=== PATIENT | male | born 1970 | race Caucasian/White ===

== ENCOUNTER 2018-05-20 12:08 | Emergency (ER) | payer OTHER ==
[2018-05-20] MEDS ORDERED: Sodium Chloride 0.9% 1000 ML 1,000 ML IV STA (12:52)
[2018-05-20] MEDS ORDERED: Ativan 2 MG/1 ML VIAL IV ONE (12:52)
--- NOTE | 2018-05-20 13:01 | ERPHSYRPT ---
- History of Present Illness Time Seen by Provider: 05/20/18 12:30 Patient Subjective Stated Complaint: pt had a seizure today while shopping at the local grocery store with his mother. mother states pt has grand mal and absent seizures. pt reports several seizures the last 3 days, reports history of seizures. states before this week his last seizure was in november. pt reports feeling dizzy proceeding his seizure but states he is feeling much better. pt denies incontinence. pt states he is scheduled to see his neurologist Dr Guillen in Jun. Triage Nursing Assessment: pt is aox3, pupils perrl, pt is able to answer all questions appropriately, afebrile, resps easy and non labored, radial pulses strong and equal, pt skin pink warm dry. pt exhibiting some gait instability when transferring from to [facility] with assistance of this nurse. 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 sensation is intact. Physician History: 47 y/o white male with known seizure disorder presents with increasing episodes of seizure activity over last 3 days. He had a witnessed seizure in [facility] this am. pt admits he doesnt take his medications as prescribed. i take it sometimes and sometimes i dont take it. 2 days ago he SOR after call to EMS for same issue. pt sees his neurologist in June 2018. pt denies headache, cp, soa and abd pain. Timing/Duration: day(s) (last 3 days increasing number of seizures.) Severity: mild Character of Deficits: none Deficits: no difficulties Baseline/Normal Cognition: alert oriented x 3 Current Cognition: alert oriented x 3 Baseline Gait: walks w/o assistance Associated Symptoms: confusion (mild post ictal), seizures, No loss of consciousness, No nausea, No vomiting, No weakness, No muscle spasms, No numbness/tingling in legs/feet, No paresthesia, No ringing in ears, No slurred speech, No trouble walking, No vision changes, No chest pain, No headache Allergies/Adverse Reactions: penicillin Allergy (Verified 12/25/14 11:10) FAMILY HX SO MD [facility] GIVE Home Medications: Diphenhydramine HCl [Benadryl] 50 mg PO TID 06/11/15 [History] Fluoxetine HCl [Prozac] 20 mg PO DAILY 06/11/15 [History] Oxcarbazepine [Trileptal] 600 mg PO BID 06/11/15 [History] predniSONE [Prednisone] 40 mg PO DAILY 06/11/15 [History] Hx Tetanus, Diphtheria Vaccination/Date Given: No Hx Influenza Vaccination/Date Given: No Hx Pneumococcal Vaccination/Date Given: No Immunizations Up to Date: Yes - Review of Systems Constitutional: No Symptoms Eyes: No Symptoms Ears, Nose, & Throat: No Symptoms Respiratory: No Symptoms Cardiac: No Symptoms Abdominal/Gastrointestinal: No Symptoms Genitourinary Symptoms: No Symptoms Musculoskeletal: No Symptoms Skin: No Symptoms Neurological: Dizziness, Seizure, No Headache Psychological: No Symptoms, No Anxiety, No Depression, No Emotional Lability, No Hallucinations Endocrine: No Symptoms Hematologic/Lymphatic: No Symptoms Immunological/Allergic: No Symptoms All Other Systems: Reviewed and Negative - Past Medical History Pertinent Past Medical History: Yes Neurological History: Seizures ENT History: Cataracts Cardiac History: No Pertinent History, Hypertension Respiratory History: No Pertinent History Endocrine Medical History: No Pertinent History Musculoskeletal History: No Pertinent History GI Medical History: GERD History: No Pertinent History Psycho-Social History: Bipolar, Depression Other Medical History: Luekemia - Past Surgical History Past Surgical History: Yes Neuro Surgical History: No Pertinent History Cardiac: No Pertinent History Respiratory: No Pertinent History Gastrointestinal: No Pertinent History Genitourinary: No Pertinent History Musculoskeletal: No Pertinent History Male Surgical History: No Pertinent History Other Surgical History: CATERACT SURGERY 2011, A CHILD 5 SURGERIES ON MUSCLE IN EYES. - Social History Smoking Status: Former smoker Exposure to second hand smoke: No Drug Use: none Patient Lives Alone: No - Nursing Vital Signs Nursing Vital Signs: Initial Vital Signs Temperature 99.4 F 05/20/18 12:10 Pulse Rate 70 05/20/18 12:10 Respiratory Rate 20 05/20/18 12:10 Blood Pressure 127/87 05/20/18 12:10 O2 Sat by Pulse Oximetry 95 05/20/18 12:10 Pain Scale Pain Intensity 0 - Yessy Coma Scale Best Eye Response (Yessy): (4) open spontaneously Best Verbal Response (Garland): (5) oriented Best Motor Response (Yessy): (6) obeys commands Garland Total: 15 - Physical Exam General Appearance: no apparent distress, alert Eye Exam: bilateral eye: normal inspection, PERRL, EOMI Ears, Nose, Throat Exam: normal ENT inspection, moist mucous membranes Neck Exam: normal inspection, non-tender, supple, full range of motion Respiratory: normal breath sounds, lungs clear, airway intact, No chest tenderness, No respiratory distress, No accessory muscle use, No rhonchi, No wheezing, No stridor Cardiovascular: regular rate/rhythm, normal heart sounds, normal peripheral pulses Gastrointestinal: soft, normal bowel sounds, No tenderness, No guarding, No rebound Rectal Exam: not done Back Exam: normal inspection, normal range of motion, No CVA tenderness, No vertebral tenderness Extremity Exam: normal inspection, normal range of motion, pelvis stable Mental Status: alert, oriented x 3, cooperative biomedical engineering technologist Exam: normal hearing, normal speech, PERRL Coordination/Gait: normal finger to nose, normal gait, normal cerebellar function Motor/Sensory: no motor deficit, no sensory deficit Skin Exam: normal color, warm SpO2 Interpretation: normal SpO2: 95 Oxygen Delivery: Room Air - Course Nursing assessment & vital signs reviewed: Yes EKG Interpreted by Me: RATE (70), Sinus Rhythm, NORMAL AXIS, NORMAL INTERVALS, Non-specific ST Changes Ordered Tests: Active Orders 24 hr Category Date Time Status Shopping Centre Manager STAT Care 05/20/18 12:53 Active EKG-ER Only STAT Care 05/20/18 12:30 Active IV Insertion STAT Care 05/20/18 12:30 Active cath [Cath for Specimen-Straight] STAT Care 05/20/18 13:34 Active HEAD WITHOUT CONTRAST [CT] Stat Exams 05/20/18 12:53 Taken CBC W DIFF Stat Lab 05/20/18 13:00 Completed CMP Stat Lab 05/20/18 13:00 Completed TROPONIN Q3H Lab 05/20/18 13:00 Completed TROPONIN Q3H Lab 05/20/18 16:15 Ordered TROPONIN Q3H Lab 05/20/18 19:15 Ordered TROPONIN Q3H Lab 05/20/18 22:15 Ordered UA W/RFX UR CULTURE Stat Lab 05/20/18 13:35 Completed Urine Triage Profile Stat Lab 05/20/18 13:35 Completed Medication Summary Discontinued Medications Generic Name Dose Route Start Last Admin Trade Name Freq PRN Reason Stop Dose Admin Sodium Chloride 1,000 mls @ 999 mls/hr 05/20/18 12:52 05/20/18 14:19 Sodium Chloride 0.9% 1000 Ml IV 05/20/18 13:52 Infused .Q1H1M STA Infusion Sodium Chloride Confirm 05/20/18 13:15 Sodium Chloride 0.9% 1000 Ml Administered 05/20/18 13:16 Dose 1,000 mls @ ud .ROUTE .STK-MED ONE Lidocaine HCl 200 mg 05/20/18 13:17 05/20/18 13:21 Xylocaine 2% Uro-Jet TOP 05/20/18 13:18 200 mg STAT ONE Administration Lidocaine HCl Confirm 05/20/18 13:19 Xylocaine 2% Uro-Jet Administered 05/20/18 13:20 Dose 200 mg .ROUTE .STK-MED ONE Lorazepam 1 mg 05/20/18 12:52 05/20/18 13:17 Ativan 2 Mg/1 Ml Vial IV 05/20/18 12:53 1 mg STAT ONE Administration Lorazepam Confirm 05/20/18 13:15 Ativan 2 Mg/1 Ml Vial Administered 05/20/18 13:16 Dose 2 mg .ROUTE .STK-MED ONE Lab/Rad Data: Laboratory Result Diagrams 05/20/18 13:00 05/20/18 13:00 Laboratory Results 05/20/18 05/20/18 05/20/18 Range/Units 13:35 13:35 13:00 WBC (4.0-10.5) K/mm3 RBC (4.1-5.6) M/mm3 Hgb (12.5-18.0) gm/dl Hct (42-50) % MCV (78-100) fl MCH (26-32) pg MCHC (32-36) g/dl RDW (11.5-14.0) % Plt Count (150-450) K/mm3 MPV (6-9.5) fl Gran % (36.0-66.0) % Eos # (Auto) (0-0.5) Absolute Lymphs (auto) (1.0-4.6) Absolute Monos (auto) (0.0-1.3) Lymphocytes % (24.0-44.0) % Monocytes % (0.0-12.0) % Eosinophils % (0.00-5.0) % Basophils % (0.0-0.4) % Absolute Granulocytes (1.4-6.9) Basophils # (0-0.4) Sodium (137-145) mmol/L Potassium (3.5-5.1) mmol/L Chloride (98-107) mmol/L Carbon Dioxide (22-30) mmol/L Anion Gap (5-15) MEQ/L BUN (9-20) mg/dL Creatinine (0.66-1.25) mg/dL Estimated GFR ML/MIN Glucose (74-106) mg/dL Calcium (8.4-10.2) mg/dL Total Bilirubin (0.2-1.3) mg/dL AST (17-59) U/L ALT (0-50) U/L Alkaline Phosphatase (38-126) U/L Troponin I < 0.012 (0.000-0.034) ng/mL Serum Total Protein (6.3-8.2) g/dL Albumin (3.5-5.0) g/dL Urine Color YELLOW (YELLOW) Urine Appearance CLEAR (CLEAR) Urine pH 5.0 (5-6) Ur Specific Marianna 1.030 (1.005-1.025) Urine Protein NEGATIVE (Negative) Urine Ketones NEGATIVE (NEGATIVE) Urine Blood NEGATIVE (0-5) Bashir/ul Urine Nitrite NEGATIVE (NEGATIVE) Urine Bilirubin NEGATIVE (NEGATIVE) Urine Urobilinogen NEGATIVE (0-1) mg/dL Ur Leukocyte Esterase NEGATIVE (NEGATIVE) Urine WBC (Auto) 0-2 (0-5) /HPF Urine RBC (Auto) NONE (0-2) /HPF U Epithel Cells (Auto) NONE (FEW) /HPF Urine Bacteria (Auto) NONE SEEN (NEGATIVE) /HPF Unidentified Crystals 2-5 (NEGATIVE) /HPF Urine Mucus (Auto) MODERATE (NEGATIVE) /HPF Urine Culture Reflexed NO (NO) Urine Glucose NEGATIVE (NEGATIVE) mg/dL Urine Opiates Level NEGATIVE (NEGATIVE) Ur Methadone NEGATIVE (NEGATIVE) Urine Barbiturates NEGATIVE (NEGATIVE) Ur Phencyclidine (PCP) NEGATIVE (NEGATIVE) Urine Amphetamine NEGATIVE (NEGATIVE) U Benzodiazepine Level NEGATIVE (NEGATIVE) Urine Cocaine NEGATIVE (NEGATIVE) Urine Marijuana (THC) NEGATIVE (NEGATIVE) 05/20/18 05/20/18 Range/Units 13:00 13:00 WBC 6.4 (4.0-10.5) K/mm3 RBC 4.59 (4.1-5.6) M/mm3 Hgb 14.8 (12.5-18.0) gm/dl Hct 44.4 (42-50) % MCV 96.7 (78-100) fl MCH 32.2 H (26-32) pg MCHC 33.3 (32-36) g/dl RDW 13.2 (11.5-14.0) % Plt Count 157 (150-450) K/mm3 MPV 9.0 (6-9.5) fl Gran % 52.5 (36.0-66.0) % Eos # (Auto) 0.05 (0-0.5) Absolute Lymphs (auto) 2.42 (1.0-4.6) Absolute Monos (auto) 0.57 (0.0-1.3) Lymphocytes % 37.6 (24.0-44.0) % Monocytes % 8.9 (0.0-12.0) % Eosinophils % 0.8 (0.00-5.0) % Basophils % 0.2 (0.0-0.4) % Absolute Granulocytes 3.39 (1.4-6.9) Basophils # 0.01 (0-0.4) Sodium 140 (137-145) mmol/L Potassium 3.8 (3.5-5.1) mmol/L Chloride 108 H (98-107) mmol/L Carbon Dioxide 26 (22-30) mmol/L Anion Gap 10.6 (5-15) MEQ/L BUN 15 (9-20) mg/dL Creatinine 0.87 (0.66-1.25) mg/dL Estimated GFR > 60.0 ML/MIN Glucose 100 (74-106) mg/dL Calcium 9.1 (8.4-10.2) mg/dL Total Bilirubin 0.50 (0.2-1.3) mg/dL AST 20 (17-59) U/L ALT 25 (0-50) U/L Alkaline Phosphatase 51 (38-126) U/L Troponin I (0.000-0.034) ng/mL Serum Total Protein 7.3 (6.3-8.2) g/dL Albumin 4.2 (3.5-5.0) g/dL Urine Color (YELLOW) Urine Appearance (CLEAR) Urine pH (5-6) Ur Specific Marianna (1.005-1.025) Urine Protein (Negative) Urine Ketones (NEGATIVE) Urine Blood (0-5) Bashir/ul Urine Nitrite (NEGATIVE) Urine Bilirubin (NEGATIVE) Urine Urobilinogen (0-1) mg/dL Ur Leukocyte Esterase (NEGATIVE) Urine WBC (Auto) (0-5) /HPF Urine RBC (Auto) (0-2) /HPF U Epithel Cells (Auto) (FEW) /HPF Urine Bacteria (Auto) (NEGATIVE) /HPF Unidentified Crystals (NEGATIVE) /HPF Urine Mucus (Auto) (NEGATIVE) /HPF Urine Culture Reflexed (NO) Urine Glucose (NEGATIVE) mg/dL Urine Opiates Level (NEGATIVE) Ur Methadone (NEGATIVE) Urine Barbiturates (NEGATIVE) Ur Phencyclidine (PCP) (NEGATIVE) Urine Amphetamine (NEGATIVE) U Benzodiazepine Level (NEGATIVE) Urine Cocaine (NEGATIVE) Urine Marijuana (THC) (NEGATIVE) - Progress Progress: improved, re-examined Progress Note: 05/20/18 15:16 pt doing well. wants to go home. ct scan head-no acute intracranial processl Counseled pt/family regarding: lab results, diagnosis, need for follow-up, rad results - Departure Time of Disposition: 15:16 Departure Disposition: Home Clinical Impression: Seizure, Noncompliance Condition: Stable Critical Care Time: No Referrals: GLORIA JOHNSON [Primary Care Provider] - Additional Instructions: take your medications as prescribed. follow up with your neurologist for further management
[2018-05-20] MEDS ORDERED: Sodium Chloride 0.9% 1000 ML 1,000 ML ONE (13:15)
[2018-05-20] MEDS ORDERED: Ativan 2 MG/1 ML VIAL ONE (13:15)
[2018-05-20] MEDS ORDERED: XYLOCAINE 2% Uro-Jet TOP ONE (13:17)
[2018-05-20] MEDS ORDERED: XYLOCAINE 2% Uro-Jet ONE (13:19)
[2018-05-20 13:28] LABS: BASOPHIL % 0.2 % (0.0-0.4); Basophil (Absolute #) 0.01 (0-0.4); Eosinophil % 0.8 % (0.00-5.0); Eosinophil (Absolute #) 0.05 (0-0.5); Granulocyte Absolute (ANC) 3.39 (1.4-6.9); Granulocytes % 52.5 % (36.0-66.0); Hematocrit 44.4 % (42-50); Hemoglobin 14.8 gm/dl (12.5-18.0); Lymphocyte (Absolute #) 2.42 (1.0-4.6); Lymphocytes % 37.6 % (24.0-44.0); Mean Cell Volume 96.7 fl (78-100); Mean Corpuscular Hemoglobin 32.2 pg (26-32); Mean Corpuscular Hgb Concent. 33.3 g/dl (32-36); Monocyte (Absolute #) 0.57 (0.0-1.3); Monocytes % 8.9 % (0.0-12.0); Platelet Count 157 K/mm3 (150-450); Red Blood Count 4.59 M/mm3 (4.1-5.6); Red Cell Distribution Width 13.2 % (11.5-14.0); White Blood Count 6.4 K/mm3 (4.0-10.5)
[2018-05-20 13:35] LABS: ALBUMIN 4.2 g/dL (3.5-5.0); ALKALINE PHOSPHATASE 51 U/L (38-126); ANION GAP 10.6 MEQ/L (5-15); BLOOD UREA NITROGEN 15 mg/dL (9-20); CHLORIDE 108 mmol/L (98-107); Calcium 9.1 mg/dL (8.4-10.2); Carbon Dioxide 26 mmol/L (22-30); Creatinine 1 0.87 mg/dL (0.66-1.25); Glucose 100 mg/dL (74-106); Potassium 3.8 mmol/L (3.5-5.1); SGOT/AST 20 U/L (17-59); SGPT/ALT 25 U/L (0-50); SODIUM 140 mmol/L (137-145); Total Protein 7.3 g/dL (6.3-8.2)
[2018-05-20 13:48] LABS: Appearance CLEAR (CLEAR); Bilirubin NEGATIVE (NEGATIVE); Blood NEGATIVE Ery/ul (0-5); Glucose NEGATIVE (NEGATIVE); Ketones NEGATIVE (NEGATIVE); Leukocyte Esterase NEGATIVE (NEGATIVE); Nitrite NEGATIVE (NEGATIVE); Protein,Urine Dip NEGATIVE (Negative); Urobilinogen NEGATIVE mg/dL (0-1)
[2018-05-20 14:24] LABS: Amphetamine,Urine NEGATIVE (NEGATIVE); Barbiturate,Urine NEGATIVE (NEGATIVE); Benzodiazepine,Urine NEGATIVE (NEGATIVE); Cocaine,Urine NEGATIVE (NEGATIVE); Methadone,Urine NEGATIVE (NEGATIVE); Opiate,Urine NEGATIVE (NEGATIVE); PCP,Urine NEGATIVE (NEGATIVE); THC,Urine NEGATIVE (NEGATIVE)
[2018-05-20 15:21] VITALS: BP 109/75; PULSE 67; O2SAT 97
--- NOTE | 2018-05-20 17:21 | XRAY ---
Indication: Seizures. History of seizures. Multiple contiguous axial images obtained through the head without contrast. Comparison: None. Punctate benign-appearing subcortical calcification in the high right parietal convexity. Otherwise no acute intracranial hemorrhage, abnormal extra-axial fluid collection, or mass effect. Fourth ventricle is midline without hydrocephalus. Carr-white matter differentiation preserved. Bony calvarium intact. Visualized paranasal sinuses and mastoid air cells are clear. Impression: Benign-appearing right parietal punctate calcification. No acute intracranial abnormalities. Comment: Preliminary interpretation was made by [facility]. No discrepancy. CTDI 69.79
== END 2018-05-20 15:30 | disposition home or self-care (01) ==
LOC: ED 12:08
DX: R56.9 Unspecified convulsions (principal); R41.0 Disorientation, unspecified; Z91.14 Patient's other noncompliance with medication regimen; Z79.899 Other long term (current) drug therapy
CPT/HCPCS: 36000; 36415; 70450; 80053; 80307; 81001; 84484; 85025; 93005; 93041; 96365; 96374; 99284; P9612; J2060

== ENCOUNTER 2024-02-18 13:02 | Emergency (ER) | payer OTHER ==
[2024-02-18 13:24] VITALS: PULSE 118; RESP 20; TEMP 99.8; O2SAT 98
[2024-02-18] MEDS ORDERED: Sodium Chloride 0.9% 1000 ML 1,000 ML ONE (13:34)
[2024-02-18] MEDS: Sodium Chloride 0.9% 1000 ML 1,000 ML IV STA (13:36)
[2024-02-18 13:38] LABS: Absolute Neutrophil Ct (ANC) 2.57 x10^3/uL (1.78-5.38); BASOPHIL % 0.4 % (0.2-1.2); Basophil (Absolute #) 0.02 x10^3/uL (0.01-0.08); Eosinophil % 1.6 % (0.8-7.0); Eosinophil (Absolute #) 0.08 x10^3/uL (0.04-0.54); Hematocrit 49.9 % (40.1-51.0); IMMATURE GRAN # 0.03 x10^3u/L (0.001-0.031); IMMATURE GRAN % 0.6 % (0.001-0.429); Lymphocyte (Absolute #) 2.07 x10^3/uL (1.32-3.57); Lymphocytes % 40.1 % (21.8-53.1); Mean Corpuscular Hemoglobin 32.4 pg (25.7-32.2); Mean Corpuscular Hgb Concent. 34.1 g/dL (32.3-36.5); Mean Platelet Volume 8.9 fL (9.4-12.4); Monocyte (Absolute #) 0.39 x10^3/uL (0.30-0.82); Monocytes % 7.6 % (5.3-12.2); Neutrophil % 49.7 % (34.0-67.9); Platelet Count 161 x10^3/uL (163-337); Red Blood Count 5.25 x10^6/uL (4.63-6.08); Red Cell Distribution Width 13.2 % (11.6-14.4); White Blood Count 5.2 x10^3/uL (4.23-9.07)
[2024-02-18 13:46] LABS: Group A Strep NOT DETECTED (NEGATIVE)
--- NOTE | 2024-02-18 13:50 | ERPHSYRPT ---
- History of Present Illness Time Seen by Provider: 02/18/24 13:47 Source: patient Exam Limitations: no limitations Patient Subjective Stated Complaint: Nasal congestion/cough Triage Nursing Assessment: Patient ambulated back to ED and transferred self to bed. Patient A+O x3. Patient's skin flushed, warm and dry. Patient complains of nasal congestion, cough, diarrhea, occasional SOB, Headache and bodyaches for one week. Patient complains of headache 5/10. Physician History: Patient complains of nasal congestion, cough, diarrhea, occasional SOB, Headache and body aches for one to two weeks. Patient complains of headache 5/10. Timing/Duration: week(s) (1-2 weeks) Cough Quality/Degree: dry cough Possible Cause: no prior episodes Associated Symptoms: fever, chills, chest pain/soreness, cough, dizziness, headache, lightheadedness, muscle aches, sinus infection, No earache, No facial pain, No nasal congestion, No nasal drainage, No shortness of breath Allergies/Adverse Reactions: penicillin Allergy (Verified 02/18/24 13:12) FAMILY HX SO MD E[facility] GIVE Home Medications: Fluoxetine HCl [Prozac] 20 mg PO DAILY 06/11/15 [History] OXcarbazepine [Trileptal] 600 mg PO BID 06/11/15 [History] diphenhydrAMINE HCL [Benadryl] 50 mg PO TID 06/11/15 [History] predniSONE [Prednisone] 40 mg PO DAILY 06/11/15 [History] Hx Tetanus, Diphtheria Vaccination/Date Given: No Hx Influenza Vaccination/Date Given: Yes Hx Pneumococcal Vaccination/Date Given: No Immunizations Up to Date: Yes Travel Risk - International Travel Have you traveled outside of the country in past 3 weeks: No - Emerging Infectious Disease Are you exhibiting symptoms associated with any current EIDs: Yes Symptoms: Cough: New Onset, Diarrhea, Fever, Headaches/Body Aches/, Loss of taste or smell, Shortness of Breath - Review of Systems Constitutional: Fever, No Chills Eyes: No Symptoms Ears, Nose, & Throat: Nose Congestion, Throat Pain Respiratory: Cough, No Dyspnea, No Wheezing Cardiac: No Chest Pain, No Edema, No Syncope Abdominal/Gastrointestinal: No Abdominal Pain, No Nausea, No Vomiting, No Diarrhea Genitourinary Symptoms: No Dysuria Musculoskeletal: No Back Pain, No Neck Pain Skin: No Rash Neurological: No Dizziness, No Focal Weakness, No Sensory Changes Psychological: No Symptoms Endocrine: No Symptoms All Other Systems: Reviewed and Negative - Past Medical History Pertinent Past Medical History: Yes Neurological History: Seizures ENT History: Cataracts Cardiac History: No Pertinent History, Hypertension Respiratory History: No Pertinent History Endocrine Medical History: No Pertinent History Musculoskeletal History: No Pertinent History GI Medical History: GERD History: No Pertinent History Psycho-Social History: Bipolar, Depression Other Medical History: Luekemia in remission since 2018 - Past Surgical History Past Surgical History: Yes Neuro Surgical History: No Pertinent History Cardiac: No Pertinent History Respiratory: No Pertinent History Gastrointestinal: No Pertinent History Genitourinary: No Pertinent History Musculoskeletal: No Pertinent History Male Surgical History: No Pertinent History Other Surgical History: CATERACT SURGERY 2011, A CHILD 5 SURGERIES ON MUSCLE IN EYES. - Social History Smoking Status: Current every day smoker How long have you smoked: years Exposure to second hand smoke: No Drug Use: none Patient Lives Alone: No - Social Determinants of Health Will the patient participate in the screening: Yes Do you worry about a steady place to live?: No Do you have any problems with any of the following?: No known problems In the past 12 months,have you had to go without utilities?: No Transportation Issues: No Has anyone in your support network made you feel unsafe?: No Have you or anyone in your house had to go without enough: No - Nursing Vital Signs Nursing Vital Signs: Initial Vital Signs Temperature 99.8 F 02/18/24 13:18 Pulse Rate 118 H 02/18/24 13:18 Respiratory Rate 20 02/18/24 13:18 Blood Pressure 125/86 02/18/24 13:18 O2 Sat by Pulse Oximetry 98 02/18/24 13:18 Pain Scale Pain Intensity 5 - Physical Exam General Appearance: no apparent distress, alert Eye Exam: PERRL/EOMI, eyes nml inspection Ears, Nose, Throat Exam: normal ENT inspection, TMs normal, pharynx normal, moist mucous membranes Neck Exam: normal inspection, non-tender, supple, full range of motion Respiratory Exam: diminished breath sounds, wheezing, No respiratory distress Cardiovascular Exam: regular rate/rhythm, normal heart sounds Gastrointestinal/Abdomen Exam: soft, No tenderness Back Exam: normal inspection, No CVA tenderness, No vertebral tenderness Extremity Exam: normal inspection, normal range of motion Neurologic Exam: alert, oriented x 3, cooperative, normal mood/affect, sensation nml, No motor deficits Skin Exam: normal color, warm, dry, No rash Lymphatic Exam: No adenopathy SpO2: 98 - Course Nursing assessment & vital signs reviewed: Yes - Radiology Exams Chest X-ray Interpretation: Interpreted by me, Reviewed by me, Negative Ordered Tests: Active Orders 24 hr Category Date Time Status CHEST 1 VIEW (PORTABLE) Stat Exams 02/18/24 13:25 Taken CBC W DIFF Stat Lab 02/18/24 13:34 Completed CMP Stat Lab 02/18/24 13:34 Completed Medication Summary Generic Name Dose Route Start Last Admin Trade Name Freq PRN Reason Stop Dose Admin Sodium Chloride 1,000 mls @ 999 mls/hr 02/18/24 13:25 02/18/24 13:36 Sodium Chloride 0.9% 1000 Ml IV 02/18/24 14:25 999 mls/hr .Q1H1M STA Administration Discontinued Medications Generic Name Dose Route Start Last Admin Trade Name Freq PRN Reason Stop Dose Admin Acetaminophen 1,000 mg 02/18/24 13:50 02/18/24 13:57 Acetaminophen 500 Mg Tablet PO 02/18/24 13:51 1,000 mg STAT STA Administration Acetaminophen Confirm 02/18/24 13:55 Acetaminophen 500 Mg Tablet Administered 02/18/24 13:56 Dose 1,000 mg .ROUTE .STK-MED ONE Sodium Chloride Confirm 02/18/24 13:34 Sodium Chloride 0.9% 1000 Ml Administered 02/18/24 13:35 Dose 1,000 mls @ ud .ROUTE .STK-MED ONE Lab/Rad Data: Laboratory Result Diagrams 02/18/24 13:34 02/18/24 13:34 Laboratory Results 02/18/24 02/18/24 02/18/24 Range/Units 13:34 13:34 13:19 WBC 5.2 (4.23-9.07) x10^3/uL RBC 5.25 (4.63-6.08) x10^6/uL Hgb 17.0 (13.7-17.5) g/dL Hct 49.9 (40.1-51.0) % MCV 95.0 H (79.0-92.2) fL MCH 32.4 H (25.7-32.2) pg MCHC 34.1 (32.3-36.5) g/dL RDW 13.2 (11.6-14.4) % Plt Count 161 L (163-337) x10^3/uL MPV 8.9 L (9.4-12.4) fL Gran % 49.7 (34.0-67.9) % Immature Gran % (Auto) 0.6 H (0.001-0.429) % Nucleat RBC Rel Count 0.0 (0.00-0.2) % Eos # (Auto) 0.08 (0.04-0.54) x10^3/uL Immature Gran # (Auto) 0.03 (0.001-0.031) x10^3u/L Absolute Lymphs (auto) 2.07 (1.32-3.57) x10^3/uL Absolute Monos (auto) 0.39 (0.30-0.82) x10^3/uL Absolute Nucleated RBC 0.00 (0.00-0.012) x10^3u/L Lymphocytes % 40.1 (21.8-53.1) % Monocytes % 7.6 (5.3-12.2) % Eosinophils % 1.6 (0.8-7.0) % Basophils % 0.4 (0.2-1.2) % Absolute Granulocytes 2.57 (1.78-5.38) x10^3/uL Basophils # 0.02 (0.01-0.08) x10^3/uL Sodium 140 (135-145) mmol/L Potassium 4.5 (3.5-5.1) mmol/L Chloride 113 H (98-107) mmol/L Carbon Dioxide 17 L (22-30) mmol/L Anion Gap 15.5 H (5-15) MEQ/L BUN 12 (9-20) mg/dL Creatinine 0.93 (0.66-1.25) mg/dL Estimated GFR 98.8 ML/MIN Glucose 95 (74-106) mg/dL Calcium 9.4 (8.4-10.2) mg/dL Total Bilirubin 0.60 (0.2-1.3) mg/dL AST 43 (17-59) U/L ALT 57 H (0-50) U/L Alkaline Phosphatase 40 (38-126) U/L Serum Total Protein 7.5 (6.3-8.2) g/dL Albumin 4.5 (3.5-5.0) g/dL Influenza Type A Ag NEGATIVE (NEGATIVE) Influenza Type B Ag NEGATIVE (NEGATIVE) RSV (PCR) NEGATIVE (NEGATIVE) SARS-CoV-2 (PCR) POSITIVE A (NEGATIVE) Group A Strep Antibody NOT DETECTED (NEGATIVE) - Progress Progress: improved Air Movement: good Blood Culture(s) Obtained: Yes Antibiotics given: No Counseled pt/family regarding: lab results, diagnosis, need for follow-up, rad results, smoking cessation Medical Desision Making - Diagnostic Testing Diagnostic test were ordered, analyzed, and reviewed by me: Yes Radiological Interpretation: Interpreted by me, Reviewed by me - Risk of complications Minimal Risk: Minimal risk of morbidity - Departure Departure Disposition: Home Clinical Impression: COVID-19 virus infection Condition: Stable Critical Care Time: No Referrals: JOSE F SERRANO MD [Primary Care Provider] - Follow up/PCP as directed Instructions: COVID-19 ED Additional Instructions: Discharge/Care Plan NA ALBARADO was seen on 02/18/24 in the Emergency Room. The anthony wendy was counseled regarding Diagnosis,Lab results, Imaging studies, need for follow up and when to return to the Emergency Room. Prescriptions given: Discharge Note I have spoken with the patient and/or caregivers. I have explained the patient's condition, diagnosis and treatment plan based on the information available to me at this time. I have answered the patient's and/or caregiver's questions and ad dressed any concerns. The patient and/or caregivers have as good understanding of the patient's diagnosis, condition and treatment plan as can be expected at this point. The vital signs have been stable. The patient's condition is stable and appropriate for discharge from the emergency department. The patient will pursue further outpatient evaluation with the primary care physician or other designated or consulting physician as outlined in the discharge instructions. The patient and/or caregivers are agreeable to this plan of care and follow-up instructions have been explained in detail. The patient and/or caregivers have received these instruction. The patient/and or caregivers are aware that any significant change in condition or worsening of symptoms should prompt an immediate return to this or the closest emergency department or call 911. NA ALBARADO was seen on 02/18/24 n the Emergency Room. At that time you were treated for an emergent condition, during your visit Laboratory, Radiology and/or other procedures may have been ordered. It is very important that you follow-up with your Primary Care Physician JOSE F SERRANO MD within the next 24-48 hours to review your Emergency Room visit and the final results of testing that was ordered. Some test results such as Urine Cultures, Blood Cultures, and other cultures if ordered will not be finalized for 24-48 hours. If you do not have a Primary Care Provider please call the medical records department at [phone] ext [phone] to obtain a copy of your results or you may sign into our patient portal to obtain these results by visiting us @ [email or web address] and completing the following steps: 1. Click on the Patient Portal link 2. Click the Patient Self Enrollment Link to complete the enrollment form and entering your 3. Once the enrollment form is completed you will receive an email with a temporary ID and password at the email address you provided. 4. Next choose a user name and password. Your user name must be at least 4 characters long and your password must be at least 4 characters long. 5. Choose a security question from the list and provide your answer to the question. If you already have signed into the Health Portal you may access your Health Care Information 20/12 by the following steps: 1. Login to our website @ [email or web address] 2. Enter your original user name and password. FAQS The [facility] Health Portal is an online tool that contains your Lab Results, Radiology Reports, Visit History, Discharge Instructions and Health Summary Lab and Radiology Results will not be available for 72 hours on the portal. The Portal is a secure site, passwords are encryted and URLs are re-written so they cannot be copied and pasted. You and authorized family members are the only ones who can access your Portal. Also there is a timeout feature that protects your information if you leave the Portal page open. If you have technical difficulty please use the Contact Us link on the page this will allow you to submit any questions you have regarding the Portal or you may contact the Medical Record Department at [phone]. Prescriptions: Guaifenesin/Dextromethorphan [Mucinex Dm ER 1,200-60 mg Tab] 1 each PO BID #15 tablet
[2024-02-18 13:51] LABS: ALBUMIN 4.5 g/dL (3.5-5.0); ANION GAP 15.5 MEQ/L (5-15); BILIRUBIN,TOTAL 0.6 mg/dL (0.2-1.3); Calcium 9.4 mg/dL (8.4-10.2); Creatinine 1 0.93 mg/dL (0.66-1.25); EST GLOMERULAR FILTRATION RATE 98.8 ML/MIN; Potassium 4.5 mmol/L (3.5-5.1); Total Protein 7.5 g/dL (6.3-8.2)
[2024-02-18] MEDS ORDERED: TYLENOL EXTRA STRENGTH 500 MG ONE (13:55)
[2024-02-18] MEDS: TYLENOL EXTRA STRENGTH 500 MG PO STA (13:57)
[2024-02-18 13:59] LABS: INFLUENZA A NEGATIVE (NEGATIVE); INFLUENZA B NEGATIVE (NEGATIVE); RESPIRATORY SYNCTIAL VIRUS NEGATIVE (NEGATIVE)
[2024-02-18 14:01] LABS: SARS-CoV-2 Xpert Express POSITIVE (NEGATIVE)
[2024-02-18 14:10] VITALS: BP 122/90
--- NOTE | 2024-02-18 20:45 | XRAY ---
Indication: Cough. Comparison: May 11, 2015 Portable chest demonstrates normal heart and lungs. Bony thorax intact. No new/acute findings.
== END 2024-02-18 14:16 | disposition home or self-care (01) ==
LOC: ED 13:02
DX: U07.1 COVID-19 (principal); R09.81 Nasal congestion; R05.9 Cough, unspecified; R19.7 Diarrhea, unspecified; F17.200 Nicotine dependence, unspecified, uncomplicated; Z85.6 Personal history of leukemia
CPT/HCPCS: 0241U; 36000; 36415; 71045; 80053; 85025; 87651; 99284; A9270-GY

== ENCOUNTER 2025-02-19 13:59 | Emergency (ER) | payer OTHER ==
[2025-02-19 15:09] VITALS: TEMP 96.2
--- NOTE | 2025-02-19 15:26 | ERPHSYRPT ---
- History of Present Illness Time Seen by Provider: 02/19/25 15:00 Source: patient Exam Limitations: no limitations Patient Subjective Stated Complaint: pt states that he is having trouble urinating. pt states that he unable to empty his bladder and his urine smells strong Triage Nursing Assessment: pt ambulated into the er; pt is axo x4; c/o urinary retention; pt states 6/10 pain to lower abd; active bowel sounds in all quads; abd soft, round, nontender; pt denies N/V/D; skin PDW; no respiratory distress present; hypertensive Physician History: This is a 54-year-old white male patient who arrives for private vehicle and sees nurse practitioner Shiela for his outpatient primary care issues. In the last week, the patient states that his urine output has decreased. He does not have dysuria. He has not noticed hematuria. However he does feel some suprapubic pressure. He has never seen a urologist. He has no diagnosed prostate issues. He has never seen a production sound mixer. Patient has a history of hyperlipidemia, seizure disorder, chronic angina and depression. Patient has no flank pain. Patient is not writhing around in pain at all. Timing/Duration: week(s) (1) Activites at Onset: none Quality: aching Onset Location: suprapubic Pain Radiation: none Severity of Pain-Max: mild Severity of Pain-Current: mild Modifying Factors: Improves With: nothing Associated Symptoms: abdominal pain (Mild suprapubic fullness, achiness), other (Decreased urine output) Sexual intercourse history: non-contributory Allergies/Adverse Reactions: penicillin Allergy (Verified 02/19/25 14:42) FAMILY HX SO MD E[facility] GIVE Home Medications: Fluoxetine HCl [Prozac] 20 mg PO DAILY 06/11/15 [History] Atorvastatin Calcium 20 mg PO DAILY 02/19/25 [History] Celecoxib [Celebrex] 200 mg PO DAILY 02/19/25 [History] Desvenlafaxine [Desvenlafaxine ER] 100 mg PO DAILY 02/19/25 [History] Galcanezumab-Gnlm [Emgality Syringe] 120 mg SQ Q30D 02/19/25 [History] Isosorbide Mononitrate 30 mg [Imdur 30 MG] 30 mg PO DAILY 02/19/25 [History] Lacosamide 200 mg PO BID 02/19/25 [History] Ranolazine [Ranolazine ER] 500 mg PO BID 02/19/25 [History] Topiramate 50 mg PO TID 02/19/25 [History] levETIRAcetam [Levetiracetam] 1,000 mg PO TID 02/19/25 [History] lisinopriL [Lisinopril] 5 mg PO DAILY 02/19/25 [History] Hx Tetanus, Diphtheria Vaccination/Date Given: No Hx Influenza Vaccination/Date Given: Yes Hx Pneumococcal Vaccination/Date Given: No Travel Risk - International Travel Have you traveled outside of the country in past 3 weeks: No - Emerging Infectious Disease Are you exhibiting symptoms associated with any current EIDs: No Symptoms: Cough: New Onset, Diarrhea, Fever, Headaches/Body Aches/, Loss of ta humphrey or smell, Shortness of Breath - Past Medical History Pertinent Past Medical History: Yes Neurological History: Seizures ENT History: Cataracts Cardiac History: No Pertinent History, Hypertension Respiratory History: No Pertinent History Endocrine Medical History: No Pertinent History Musculoskeletal History: No Pertinent History GI Medical History: GERD History: No Pertinent History Psycho-Social History: Bipolar, Depression Other Medical History: Luekemia in remission since 2018 - Past Surgical History Past Surgical History: Yes Neuro Surgical History: No Pertinent History Cardiac: No Pertinent History Respiratory: No Pertinent History Gastrointestinal: No Pertinent History Genitourinary: No Pertinent History Musculoskeletal: No Pertinent History Male Surgical History: No Pertinent History Other Surgical History: CATERACT SURGERY 2011, A CHILD 5 SURGERIES ON MUSCLE IN EYES. - Social History Smoking Status: Former smoker How long have you smoked: years Exposure to second hand smoke: No Drug Use: none - Social Determinants of Health Will the patient participate in the screening: Yes Do you worry about a steady place to live?: No Do you have any problems with any of the following?: No known problems In the past 12 months,have you had to go without utilities?: No Transportation Issues: No Has anyone in your support network made you feel unsafe?: No Have you or anyone in your house had to go w/o enough food: No - Review of Systems Constitutional: No Symptoms Eyes: No Symptoms Ears, Nose, & Throat: No Symptoms Respiratory: No Symptoms Cardiac: No Symptoms Abdominal/Gastrointestinal: Abdominal Pain (Suprapubic pressure and achiness) Genitourinary Symptoms: Urinary Retention Musculoskeletal: No Symptoms Skin: No Symptoms Neurological: No Symptoms Psychological: No Symptoms Endocrine: No Symptoms Hematologic/Lymphatic: No Symptoms Immunological/Allergic: No Symptoms All Other Systems: Reviewed and Negative - Nursing Vital Signs Nursing Vital Signs: Initial Vital Signs Pulse Rate 106 H 02/19/25 14:42 Respiratory Rate 13 02/19/25 14:42 Blood Pressure 159/97 02/19/25 14:42 O2 Sat by Pulse Oximetry 98 02/19/25 14:42 Pain Scale Pain Intensity 6 - Physical Exam General Appearance: no apparent distress, alert, obese Eye Exam: PERRL/EOMI Ears, Nose, Throat Exam: normal ENT inspection, moist mucous membranes Neck Exam: normal inspection, non-tender, supple, full range of motion Respiratory Exam: normal breath sounds, lungs clear, airway intact, No chest tenderness, No respiratory distress Cardiovascular Exam: regular rate/rhythm, normal heart sounds, normal peripheral pulses Gastrointestinal/Abdomen Exam: soft, normal bowel sounds, tenderness (Mild tenderness to palpation suprapubic region), No guarding, No rebound Rectal Exam: not done Back Exam: normal inspection, normal range of motion, No CVA tenderness, No vertebral tenderness Extremity Exam: normal inspection, normal range of motion, pelvis stable Neurologic Exam: alert, oriented x 3, cooperative, tuberculosis specialist II-XII nml as tested, normal mood/affect, nml cerebellar function, nml station & gait, sensation nml Skin Exam: normal color, warm, dry Lymphatic Exam: No adenopathy SpO2 Interpretation: normal SpO2: 97 O2 Delivery: Room Air - Course Nursing assessment & vital signs reviewed: Yes Ordered Tests: Active Orders 24 hr Category Date Time Status CULTURE,URINE Stat Lab 02/19/25 15:09 Received UA W/RFX UR CULTURE Stat Lab 02/19/25 15:09 Completed Lab/Rad Data: Laboratory Results 02/19/25 Range/Units 15:09 Urine Color Dark Yellow (Yellow) Urine Appearance Cloudy A (Clear) Urine pH 5.5 (4.6-8.0) Ur Specific Kennedy 1.020 (1.005-1.030) Urine Protein 30 (Negative) Urine Glucose (UA) Negative (Negative) mg/dL Urine Ketones Trace A (Negative) Urine Blood Large A (Negative) Urine Nitrite Negative (Negative) Urine Bilirubin Negative (Negative) Urine Urobilinogen 1.0 A (0.2) mg/dL Ur Leukocyte Esterase Small A (Negative) U Hyaline Cast (Auto) 20-50 (0-2) /LPF Urine Microscopic RBC 21-50 A (0-5) /HPF Urine Microscopic WBC 6-10 A (0-5) /HPF Ur Epithelial Cells Rare (None Seen) /HPF Urine Bacteria Many A (None Seen) /HPF Urine Culture Reflexed YES (NO) - Progress Progress: improved, re-examined Progress Note: 02/19/25 15:25 My medical decision making and the assignment of low to moderate complexity of this patient's medical issue today is based on review of the patient's past medical history, review the patient's medication list, reviewed patient drug allergy list, history presence of physical findings on examination. The workup in this patient will initially be a urinalysis looking for urinary tract infection as the cause of his urinary retention. We will also perform a bladder scan. If the bladder scan is minimal urine present and there is no infection in the urine, we will proceed with intravenous IV placement, intravenous IV fluid was not infusion, CBC, CMP, and CT scan of the abdomen pelvis Differential diagnosis includes but is not limited to prostate abnormality, urinary tract infection, renal disease, dehydration 02/19/25 15:38 I interpreted the patient's laboratory data results. Based on laboratory data results, the patient does have a significant urinary tract infection. Will treat his urinary tract infection. This should help relieve urinary retention if the retention is secondary to infection. He will be instructed to call his primary care provider today, 02/19/2025, to be evaluated by urology and nephrology if indicated Counseled pt/family regarding: lab results, diagnosis Medical Desision Making - Diagnostic Testing Diagnostic test were ordered, analyzed, and reviewed by me: Yes - Risk of complications Low Risk: Low risk of morbidity from additional dx testing or treatment The pt has a mod risk of morbidity or mortality based on: Need for prescription drug management - Departure Departure Disposition: Home Clinical Impression: Urinary tract infection Condition: Stable Critical Care Time: No Referrals: JOSE F SERRANO MD [Primary Care Provider, [facility]] - Follow up/PCP as directed Additional Instructions: Drink plenty of clear liquids. Take your antibiotics as prescribed. Call your primary care provider today, 02/19/2025, to make arrangements for an outpatient appointment to discuss referral to a urologist to evaluate your prostate and for production sound mixer to evaluate kidney function if indicated Prescriptions: Ciprofloxacin [Cipro 500 MG] 500 mg PO BID #14 tablet
[2025-02-19 15:32] LABS: Glucose, Urine Negative (Negative); Protein,Urine Dip 30 (Negative); RBC 21-50 /HPF (0-5)
[2025-02-19] MEDS ORDERED: Levofloxacin 500 MG Tablet ONE (15:47)
[2025-02-19] MEDS: Levofloxacin 500 MG Tablet PO ONE (15:48)
[2025-02-19 16:02] VITALS: BP 133/90; PULSE 104; RESP 15; O2SAT 98
== END 2025-02-19 16:13 | disposition home or self-care (01) ==
LOC: ED 13:59
DX: N39.0 Urinary tract infection, site not specified (principal); I10 Essential (primary) hypertension; Z79.899 Other long term (current) drug therapy